=== PATIENT | female | born 1950 | race Caucasian/White ===

== ENCOUNTER 2021-06-19 18:22 | Outpatient (REF) | payer MEDICARE, OTHER, SELFPAY ==
[2021-06-19 22:16] LABS: TSH 2.13 uIU/mL (0.36-3.74)
[2021-06-21 13:47] LABS: Lyme Ab w Rflx to Lyme Confirm Negative (Negative)
== END 2021-06-19 18:23 | disposition home or self-care (01) ==
LOC: NCHCN 18:22
PROVIDERS: PCP Internal Medicine; Visit Provider Internal Medicine
DX: M16.0 Bilateral primary osteoarthritis of hip (principal); R03.0 Elevated blood-pressure reading, without diagnosis of hypertension
CPT/HCPCS: 84443; 86618

== ENCOUNTER 2023-10-28 18:23 | Outpatient (REF) | payer MEDICARE, OTHER, SELFPAY ==
--- NOTE | 2023-10-28 13:30 | SKI_PTH ---
PATIENT: Fifi Baker LOC: [facility] U#:[id number] AGE/SX: 73/F ROOM: RE10/28/[address]: Suleman Wise : 1950 BED: DIS: 10/28/2023 SPEC #: [id number] RECD: 10/29/23 12:41 STATUS: SHAWN REYulissa #: [id number] JESSICA: 10/28/23 13:[address]: Suleman Wise DEPT: Surgical Specimen RECD BY: Yani Belle Tissues: 1 - SKIN BIOPSY(SHAVE/PUNCH) Procedures: SKIN LEVEL 4 Comments: [id number]
[2023-10-28 21:14] LABS: HCT 36.7 % (36.0-46.0); MCH 29.9 pg (27.0-33.0); MCHC 32.7 % (32.0-36.0); MCV 92 fL (80-95); MPV 10.1 fL (8.0-11.0); Platelet Count 302 10^3/uL (130-400); RBC 4.01 10^6/uL (3.93-5.22); RDW-SD 47.7 fL
[2023-10-28 22:02] LABS: ALT 26 U/L (14-59); AST 26 U/L (15-37); Albumin 4.2 g/dL (3.4-5.0); Alkaline Phosphatase 95 U/L (46-116); Anion Gap 7.2 mmol/L (3-11); BUN 15 mg/dL (7-18); Bilirubin, Total 1.2 mg/dL (0.2-1.0); CO2 29.8 mmol/L (21.0-32.0); CREATININE 0.8 mg/dL (0.55-1.02); Calcium 9.4 mg/dL (8.5-10.1); Chloride 103 mmol/L (98-107); Estimated GFR 76.79 (mL/min/1.73m2); Glucose 106 mg/dL (74-106); Sodium 140 mmol/L (136-145); TSH 1.91 uIU/Ml (0.36-3.74); Total Protein 8.1 g/dL (6.4-8.2); Vitamin B12 798 pg/mL (193-986)
== END 2023-10-28 18:24 | disposition home or self-care (01) ==
LOC: NCHCN 18:23
PROVIDERS: PCP Internal Medicine; Visit Provider Internal Medicine
DX: G98.8 Other disorders of nervous system (principal); I10 Essential (primary) hypertension; R20.2 Paresthesia of skin; R59.1 Generalized enlarged lymph nodes
CPT/HCPCS: 80053; 85027; 82607; 84443; 88305

== ENCOUNTER → 2023-11-04 03:46 | Outpatient (CLI) | payer MEDICARE, OTHER, SELFPAY ==
--- NOTE | 2023-11-04 | DI.MAMMO_ITS ---
Exam(s) MAMMO SCREENING EXAM: MAMMO SCREENING CLINICAL HISTORY: SCREENING MAMMO FOR BREAST CANCER Z12.31 TECHNIQUE: Bilateral full field digital CC and MLO mammographic images were obtained with 3D tomosyn thesis and utilizing computer aided detection (CAD). COMPARISON: This is a baseline examination. FINDINGS: Masses/Architectural Distortion: None seen. Microcalcifications: No suspicious pleomorphic-type are seen. Skin Thickening/Nipple Retraction: None. IMPRESSION: 1. No evidence for malignancy at this time. 2. Unless there is more urgent need, screening mammography is recommended, as per [employer] guidelines. BI-RADS Category 1 - Negative Breast Density - Category C - Heterogeneously dense Breast density category C or D implies that the patient has dense breast tissue. Dense breast tissue is very common and is not abnormal but dense breast tissue can make it harder to find cancer on a ma mmogram. Also, dense breast tissue may increase their breast cancer risk. This information about the result of the mammogram report was provided to the patient to raise their awareness. Use this report when you speak with the patient about their risks for breast cancer, which includes their family hist ory. At that time, you may recommend for more screening tests (Ultrasound or MRI) as they might be us eful based on their risk. A negative radiographic report should not delay biopsy if a dominant or clinically suspicious mass is present. Up to ten percent of cancers are not identified on mammography. A negative report may reinforce clinical impression. Adenosis and dense breasts may obscure an underlying neoplasm. False positive reports average 6 to 10%. Patient will receive a letter notifying them of these results.
== END ==
PROVIDERS: PCP Internal Medicine; Visit Provider Internal Medicine
DX: Z12.31 Encounter for screening mammogram for malignant neoplasm of breast (principal); R92.333 Mammographic heterogeneous density, bilateral breasts
CPT/HCPCS: 77063; 77067